=== PATIENT | female | born 1990 | race Caucasian/White ===

== ENCOUNTER 2025-02-14 09:11 | Day surgery (SDC) | payer OTHER, SELFPAY ==
[2025-02-13 23:38] LABS: % Basophils 0.6 % (0-2); % Eosinophils 1.2 % (0-6); % Immature Granulocytes 0.4 % (0-0.5); % Lymphocytes 14.5 % (20.5-51.1); % Monocytes 3.4 % (1.7-9.3); % Neutrophils 79.9 % (42.2-75.2); Absolute Basophils 0.1 10^3/uL (0-0.2); Absolute Eosinophils 0.2 10^3/uL (0-0.7); Absolute Immature Granulocytes 0.1 10^3/uL (0-0.05); Absolute Lymphocytes 2.6 10^3/uL (1.2-3.4); Absolute Monocytes 0.6 10^3/uL (0.1-0.6); Hematocrit 41.4 % (37.0-47.0); Hemoglobin 14.2 g/dL (12.0-16.0); Mean Corp Hgb Conc. 34.3 g/dL (33.0-37.0); Mean Corpuscular Volume 81.7 fL (81.0-99.0); Mean Platelet Volume 10.1 fL (7.4-10.4); Nucleated Red Blood Cells % 0 %; Platelet Count 330 10^3/uL (130-400); Red Blood Cell Count 5.07 10^6/uL (4.20-5.40); Red Cell Dist. Width 13.5 % (11.5-14.5); White Blood Cell Count 17.6 10^3/uL (4.8-10.8)
[2025-02-14 00:03] LABS: ALT (SGPT) 31 U/L (0-35); AST (SGOT) 24 U/L (14-36); Albumin 4.3 g/dl (3.5-5.0); Alkaline Phosphatase 93 U/L (38-126); Blood Urea Nitrogen 10 mg/dl (7-17); Calcium 9.8 mg/dl (8.4-10.2); Carbon Dioxide 21 mmol/L (22-30); Chloride 103 mmol/L (98-107); Glucose 116 mg/dl (70-99); Lipase 144 U/L (23-300); Potassium 4.4 mmol/L (3.5-5.1); Sodium 137 mmol/L (135-145); Total Bilirubin 0.7 mg/dl (0.2-1.3); Total Protein 7.1 g/dl (6.3-8.2); eGFR > 60.00
--- NOTE | 2025-02-14 00:38 | ED.GENMED ---
History of Present Illness
<Inga Alvarenga, THERMAL CUTTER HAND - Last Filed: 02/16/25 19:33>
General
Chief Complaint: Abdominal Symptoms
Source: patient
Exam Limitations: none
Time Seen by Provider: 02/14/25 00:27
Nursing documentation reviewed up to this point in time: agreed with
History of Present Illness
History of Present Illness:
34-year-old transgender female presents for vomiting frequently since 7:30 PM (past 5 hours) she also has been burning sharp epigastric pain burning up her mid chest. She took Tums and Zofran. She denies feeling nauseous, 'I am just throwing up.'
She denies abdominal pain. She has been having normal bowel movements her last bowel movement with earlier today. Denies UTI symptoms. Denies previous abdominal or bowel surgery
Past History
<Inga Alvarenga, THERMAL CUTTER HAND - Last Filed: 02/16/25 19:33>
Past History
ED Past Medical History: Other (transgender)
ED Past Surgical History: Other (Transgender surgery)
Social History
Tobacco: Non-smoker
Alcohol: None
Drug: None
Personal:
Living: with family
Employment: Employed
Family History
Family History: CAD (father had PA age 47)
Review of Systems
<Inga Alvarenga, THERMAL CUTTER HAND - Last Filed: 02/16/25 19:33>
Review of Systems
Allergies reviewed?: Yes
All Other Systems: ROS reviewed and negative except as documented in HPI and ROS
Constitutional: Denies fever
Respiratory: Denies trouble breathing
Cardiac: Denies chest pain
ABD/GI: Reports vomiting; Denies abdominal pain, nausea, diarrhea or constipated
: Denies dysuria, frequency or difficulty voiding
Musculoskeletal: Reports no symptoms
Skin: Reports no symptoms
Neurological: Reports no symptoms
Phy Exam
<Inga Alvarenga, THERMAL CUTTER HAND - Last Filed: 02/16/25 19:33>
Physical Exam
Physical Exam:
GENERAL: No acute distress. A&Ox3.
CONSTITUTIONAL: Afebrile.
EYES: clear, conjunctivae normal
ENMT: moist mucus membranes, Pharynx nl
RESPIRATORY: Regular respirations, nonlabored, lungs clear.
CARDIOVASCULAR: Regular rate and rhythm, no murmurs, no rubs.
GI: Soft, obese, nontender, normal BS
MUSCULOSKELETAL: Moves with ease. Well perfused.
SKIN: Warm, dry, pink
PSYCH: Normal mood and affect. Well kept, interactive and appropriate
NEUROLOGIC: Awake, alert and oriented. No focal neurological deficits
Course
<Inga Alvarenga, THERMAL CUTTER HAND - Last Filed: 02/16/25 19:33>
Orders/Labs/Results
Orders:
Orders
02/13/25 23:17
EKG- Treatment ONCE
02/13/25 23:28
Complete Blood Count/With Diff Urgent
Comprehensive Metabolic Panel Urgent
Lipase Urgent
02/14/25 00:37
Mag Hydrox/Al Hydrox/Simeth [Maalox] 30 ml Phenobarb/Hyoscy/Atropine/Scop [] 10 ml Viscous Lidocaine 2% [Xylocaine Viscous Cup] 10 ml PO NOW
02/14/25 00:56
Mag Hydrox/Al Hydrox/Simeth [Maalox] 30 ml .ROUTE .STK-MED ONE
Phenobarb/Hyoscy/Atropine/Scop [] 10 ml .ROUTE .STK-MED ONE
Viscous Lidocaine 2% [Xylocaine Viscous Cup] 15 ml .ROUTE .STK-MED ONE
02/14/25 01:12
CT Abd/Pel (IV only)-[facility] only Urgent
Comment:
Reason For Exam: peristent vomiting
Ondansetron Injectable [Zofran] 4 mg IV NOW STA
02/14/25 01:15
Pantoprazole [Protonix IV] 80 mg IV NOW STA
02/14/25 01:18
Electrocardiogram (*1) Urgent
Reason for Study: Chest Pain
EKG- Treatment ONCE
02/14/25 01:31
Troponin I Urgent
02/14/25 03:28
Glucagon [GlucaGen] 1 mg IV NOW STA
02/14/25 03:31
0.9% Sodium Chloride 1000 ml [Nss] 1,000 ml IV BOLUS
02/14/25 04:17
Glucagon [GlucaGen] 1 mg .ROUTE .STK-MED ONE
02/14/25 04:18
Glucagon [GlucaGen] 1 mg IV NOW STA
02/14/25 09:12
Succinylcholine Chloride [Succinylcholine] 200 mg .ROUTE .STK-MED ONE
ePHEDrine SULFATE [Emerphed] 50 mg .ROUTE .STK-MED ONE
Abnormal Lab Results
02/13/25
23:28
WBC 17.6 H 10^3/uL
(4.8-10.8)
Abs Immat Gran (auto) 0.1 H 10^3/uL
(0-0.05)
Absolute Neuts (auto) 14.0 H 10^3/uL
(1.4-6.5)
Neutrophils % 79.9 H %
(42.2-75.2)
Lymphocytes % 14.5 L %
(20.5-51.1)
Carbon Dioxide 21 L mmol/L
(22-30)
Glucose 116 H mg/dl
(70-99)
02/13/25 23:28
02/13/25 23:28
Vital Signs
Initial and Last Documented VS:
Initial Vital Signs
Temp Pulse Resp BP Pulse Ox
98 F 100 22 167/115 94
02/13/25 23:13 02/13/25 23:13 02/13/25 23:13 02/13/25 23:13 02/13/25 23:13
Last Documented Vital Signs
Temp Pulse Resp BP Pulse Ox
98.2 F 75 18 135/75 95
02/14/25 09:09 02/14/25 10:30 02/14/25 10:30 02/14/25 10:30 02/14/25 10:30
Fence Post Driver consulted with Physician
Fence Post Driver consulted with physician?: Yes
Name of Physician Consulted: Dr. Bob
<Susana Bob, DO - Last Filed: 02/14/25 06:30>
Orders/Labs/Results
Orders:
Orders
02/13/25 23:17
EKG- Treatment ONCE
02/13/25 23:28
Complete Blood Count/With Diff Urgent
Comprehensive Metabolic Panel Urgent
Lipase Urgent
02/14/25 00:37
Mag Hydrox/Al Hydrox/Simeth [Maalox] 30 ml Phenobarb/Hyoscy/Atropine/Scop [] 10 ml Viscous Lidocaine 2% [Xylocaine Viscous Cup] 10 ml PO NOW
02/14/25 00:56
Mag Hydrox/Al Hydrox/Simeth [Maalox] 30 ml .ROUTE .STK-MED ONE
Phenobarb/Hyoscy/Atropine/Scop [] 10 ml .ROUTE .STK-MED ONE
Viscous Lidocaine 2% [Xylocaine Viscous Cup] 15 ml .ROUTE .STK-MED ONE
02/14/25 01:12
CT Abd/Pel (IV only)-[facility] only Urgent
Comment:
Reason For Exam: peristent vomiting
Ondansetron Injectable [Zofran] 4 mg IV NOW STA
02/14/25 01:15
Pantoprazole [Protonix IV] 80 mg IV NOW STA
02/14/25 01:18
Electrocardiogram (*1) Urgent
Reason for Study: Chest Pain
EKG- Treatment ONCE
02/14/25 01:31
Troponin I Urgent
02/14/25 03:28
Glucagon [GlucaGen] 1 mg IV NOW STA
02/14/25 03:31
0.9% Sodium Chloride 1000 ml [Nss] 1,000 ml IV BOLUS
02/14/25 04:17
Glucagon [GlucaGen] 1 mg .ROUTE .STK-MED ONE
02/14/25 04:18
Glucagon [GlucaGen] 1 mg IV NOW STA
02/14/25 09:12
Succinylcholine Chloride [Succinylcholine] 200 mg .ROUTE .STK-MED ONE
ePHEDrine SULFATE [Emerphed] 50 mg .ROUTE .STK-MED ONE
Abnormal Lab Results
02/13/25
23:28
WBC 17.6 H 10^3/uL
(4.8-10.8)
Abs Immat Gran (auto) 0.1 H 10^3/uL
(0-0.05)
Absolute Neuts (auto) 14.0 H 10^3/uL
(1.4-6.5)
Neutrophils % 79.9 H %
(42.2-75.2)
Lymphocytes % 14.5 L %
(20.5-51.1)
Carbon Dioxide 21 L mmol/L
(22-30)
Glucose 116 H mg/dl
(70-99)
02/13/25 23:28
02/13/25 23:28
Vital Signs
Initial and Last Documented VS:
Initial Vital Signs
Temp Pulse Resp BP Pulse Ox
98 F 100 22 167/115 94
02/13/25 23:13 02/13/25 23:13 02/13/25 23:13 02/13/25 23:13 02/13/25 23:13
Last Documented Vital Signs
Temp Pulse Resp BP Pulse Ox
98.2 F 75 18 135/75 95
02/14/25 09:09 02/14/25 10:30 02/14/25 10:30 02/14/25 10:30 02/14/25 10:30
<Inga Alvarenga, THERMAL CUTTER HAND - Last Filed: 02/16/25 19:33>
MDM/Problems Addressed
Differential Diagnosis Includes:
GERD, bowel obstruction, esophageal food bolus
MDM/Problems Addressed:
34-year-old transgender female presents for vomiting frequently since 7:30 PM (past 5 hours) she also has been burning sharp epigastric pain burning up her mid chest. This developed after eating [employer] steak and chicken. She took Tums and
Zofran. She denies feeling nauseous, 'I am just throwing up.' She denies abdominal pain. She has been having normal bowel movements her last bowel movement with earlier today. Denies UTI symptoms. Denies previous abdominal or bowel surgery
Last emesis about 20 minutes ago
EKG NSR
12:30 AM:
CBC: WBC 17.6 (most likely reactive to vomiting)
CMP normal
Lipase normal
Troponin WNL
Pt had GI cocktail and vomited it.
Will give IV Protonix, CT abd/pelvis w IV contrast
Pt continues to regurgitate her saliva
Case discussed with Dr. Bob who examined pt. Dr. Bob will assume care from this point.
CT reviewed by Dr. Bob.
Suspect food bolus.
<Inga Alvarenga, THERMAL CUTTER HAND - Last Filed: 02/16/25 19:33>
*EKG
EKG Intrepretation Date: 02/14/25
Interpretation: normal
Heart Rate: 90
Rate: normal
Rhythm: sinus
[place]: normal axis
Interval: normal interval
QRS Pattern: normal QRS
Ischemia: no ischemia
<Susana Bob, DO - Last Filed: 02/14/25 06:30>
*Radiology
Radiology exam reviewed: radiology read reviewed
*Pulse Oximetry
Patient hypoxic: no
*EKG
Interpreted by ED Provider?: Yes
Comparison EKG: no comparison EKG present
*Fabrication Machine Operator Interpretation
Rate: normal
Interpretation: normal
Rhythm: sinus
*Critical Care Note
Total Time (30-74mins, 75-104mins- exclusive of procedures): Not Applicable
<Susana Bob DO - Last Filed: 02/14/25 06:30>
Update Note
Update Note:
Despite 2 doses of IV glucagon patient continues to promptly regurgitate water.
GI has been notified. Will plan to continue IV fluids, n.p.o. status and plan for GI lab this morning.
ED Attending Note
<Inga Alvarenga THERMAL CUTTER HAND - Last Filed: 02/16/25 19:33>
-
Portions of this chart may have been created with voice recognition software.� Occasional wrong word or��sound alike� substitutions may have occurred due to the inherent limitations of voice recognition software.
<Susana Bob DO - Last Filed: 02/14/25 06:30>
ED Attending Note
Patient seen and examined by attending physician: Yes
I performed a history and physical exam of patient and discussed management with resident, I reviewed resident's note and agree with documented findings and plan of care.: Yes
ED Attending Note:
34-year-old transgender female presents with somewhat abrupt onset of mid substernal chest discomfort which she describes as a sensation of heartburn associated with recurrent vomiting, prompt regurgitation of anything she attempts to drink as well
as intermittent vomiting of saliva. No history of similar episodes in the past. Symptoms began while eating dinner tonight which consisted of [employer] with chicken and steak. She denies choking on her food. No history of similar episodes in the
past. She denies coughing or shortness of breath.
34-year-old woman appears her stated age. Intermittently spitting saliva into an emesis bag.
Heart is regular rate and rhythm.
Lungs are clear to auscultation. Respirations are easy and nonlabored.
Abdomen is soft without appreciable tenderness.
Patient exam most consistent with esophageal food impaction.
Will trial an IV dose of glucagon. She has already been given an IV dose of Protonix. Will initiate IV fluids.
Labs show moderately elevated white blood cell count of 17.6, chemistries are unremarkable. Troponin is negative. EKG is unremarkable.
CT abdomen pelvis appears to show an impacted food bolus distal esophagus with mild air-fluid distention of the distal esophagus.
Discharge Plan
Departure
Patient Disposition: GI LAB
Date of Disposition: 02/14/25
Time of Disposition: 06:05
Admit to doctor: Evin Delgado
Presentation/result/management discussed w/ accepting MD/DO: GI
Discharge Problem:
Distal esophageal food impaction
Interventions
Interventions:
*Risk Screen - Suicide Last Done: 02/13/25 23:13
*General Assessment Last Done: 02/14/25 00:13
*Neglect/Abuse Screening Last Done: 02/13/25 23:13
*ED- Fall Risk Assessment Last Done: 02/14/25 00:13
*ED COVID-19 Vaccine History Last Done: 02/14/25 00:13
*Nursing Disposition Last Done: 02/14/25 08:19
LT-Pbdify-[id number] Assessment Last Done: 02/14/25 06:46
Discharge Date and Time
Discharge Date/Time: 02/14/25 08:20
[2025-02-14] MEDS: MAALOX 50 PO (00:58)
[2025-02-14] MEDS: ZOFRAN 4 MG IV (01:24)
[2025-02-14] MEDS: PROTONIX IV 80 MG IV (01:24)
[2025-02-14 02:01] LABS: Troponin I < 0.012 ng/ml
[2025-02-14] MEDS: GlucaGen 1 MG IV ×2 (03:32→04:19)
[2025-02-14] MEDS: NSS 1000 IV (03:32)
--- NOTE | 2025-02-14 08:19 | EDRN ---
Chelsy from the GI lab called this RN and verbal report was given
--- NOTE | 2025-02-14 08:44 | CON.GI ---
Consultation
-
Date/Time Consultation Requested: 02/14/2025
Date/Time Consultation Performed: 02/14/2025
Performing Provider: Evin Delgado
Reason for Consultation: food impaction
Medical History
Chief Complaint / HPI
Chief Complaint: food impaction
History of Present Illness:
Patient is a 34-year-old transgender female with history of kidney stone who presents with suspected food impaction. Patient is eating steak and cheese sandwich last night when he felt it got stuck in his throat around 7 PM. He was not able to
tolerate anything oral thereafter. She denies prior food impaction episodes. Never had EGD.
Past Medical History
Past Medical History: Other
Past Surgical History: Other
Social History
Tobacco: Non-Smoker
Alcohol: None
Family History
Family History: Reviewed & Not Pertinent
Allergies / Home Medications
Allergy/AdvReac Type Severity Reaction Status Date / Time
No Known Allergies Allergy Verified 02/13/25 23:16
�Medication �Instructions �Recorded
No Meds [No Current Medications] 02/14/25
Review of Systems
Vital Signs
Temp Pulse Resp BP Pulse Ox
97.6 F 104 20 133/79 92
02/14/25 06:46 02/14/25 06:46 02/14/25 06:46 02/14/25 08:00 02/14/25 08:15
Physical Exam
Exam
General: Well Developed and Well Nourished
HEENT: Normocephalic
Respiratory: Clear
Cardiac: S1/S2
GI: Soft, Non Tender, Non Distended and Normal Bowel Sounds
Results
WBC 17.6 10^3/uL (4.8-10.8) H 02/13/25 23:28
Hgb 14.2 g/dL (12.0-16.0) 02/13/25 23:28
Hct 41.4 % (37.0-47.0) 02/13/25 23:28
MCV 81.7 fL (81.0-99.0) 02/13/25:
Plt Count 330 10^3/uL (130-400) 02/13/25 23:28
Absolute Neuts (auto) 14.0 10^3/uL (1.4-6.5) H 02/13/25:
Sodium 137 mmol/L (135-145) 02/13/25:
Potassium 4.4 mmol/L (3.5-5.1) 02/13/25:
Chloride 103 mmol/L (98-107) 02/13/25:
Carbon Dioxide 21 mmol/L (22-30) L 02/13/25:28
BUN 10 mg/dl (7-17) 02/13/25:
Creatinine 0.6 mg/dL (0.6-1.0) 02/13/25:
Calcium 9.8 mg/dl (8.4-10.2) 02/13/25:
Total Bilirubin 0.7 mg/dl (0.2-1.3) 02/13/25:
AST 24 U/L (14-36) 02/13/25:28
ALT 31 U/L (0-35) 02/13/25:28
Alkaline Phosphatase 93 U/L (38-126) 02/13/25:
Lipase 144 U/L (23-300) 02/13/25 23:28
Diagnostic Image Results:
Prior GI Procedures:
EGD:
Colonoscopy:
Assessment / Plan
-
34-year-old transgender female with history of kidney stone who presents with suspected food impaction.
Impression / Rec:
1. Food impaction - suspected to have occurred around 7 pm last night, was unable to tolerate oral intake/oral secretions but feeling somewhat improved in past hour. Will evaluate/intervene with EGD. Possible underlying EoE.
Total Time Spent with Patient (in minutes): 55
-
-
Thank you for consultation and allowing me to participate in the patient's care. Please call the certified recreational therapist GI physician during the after hours with any questions or concerns.
== END 2025-02-14 10:30 | disposition home or self-care (01) ==
LOC: SDS 09:11
PROVIDERS: Registered Nurse; ATTENDING PHYSICIAN Internal Medicine Gastroenterology; EMERGENCY PHYSICIAN Emergency Medicine
DX: T18.108A Unspecified foreign body in esophagus causing other injury, initial encounter (principal); R13.10 Dysphagia, unspecified; K22.89 Other specified disease of esophagus; K20.90 Esophagitis, unspecified without bleeding; W44.9XXA Unspecified foreign body entering into or through a natural orifice, initial encounter; K20.0 Eosinophilic esophagitis
CPT/HCPCS: 43239; 88305; 74177; 80053; 83690; 84484; 85025; 93005; 99285; J1610; Q9967

== ENCOUNTER 2025-09-09 06:16 | Day surgery (SDC) | payer OTHER, SELFPAY ==
[2025-09-09 10:19] VITALS: BMI 43.4
[2025-09-09 10:24] VITALS: BP 123/88
[2025-09-09 12:11] VITALS: BP 132/80
[2025-09-09 12:15] VITALS: BP 127/86
[2025-09-09 12:30] VITALS: BP 122/73
== END 2025-09-09 14:02 | disposition home or self-care (01) ==
LOC: SDS 06:16
PROVIDERS: ATTENDING PHYSICIAN Student in an Organized Health Care Education/Training Program
DX: K22.89 Other specified disease of esophagus (principal); K22.81 Esophageal polyp; Z87.19 Personal history of other diseases of the digestive system
CPT/HCPCS: 43239; 88305; 88342